=== PATIENT | female | born 2000 | race Caucasian/White ===

== ENCOUNTER 2024-07-11 10:24 | Emergency (ER) | payer MEDICAID, SELFPAY ==
--- NOTE | ~2024-07-11 | US_ITS ---
EXAMINATION: US PELVIS CLINICAL INFORMATION: Vaginal bleeding x2 weeks. LMP x2 weeks. COMPARISON: None available. TECHNIQUE: Ultrasound of the pelvis is performed using both transabdominal and transvaginal transducers along with Doppler. Transvaginal imaging is performed due to inadequate visualization transabdominally. FINDINGS: Uterus: The uterus is anteverted and measures 6.7 x 3.6 x 4.2 cm. The double wall endometrial thickness is 0.5 mm. The uterus is smooth in contour and has normal myometrial echogenicity. No visible fibroid. Adnexa: Both ovaries are visualized. There is normal color flow to the adnexa. There is no ovarian torsion. There is no pelvic ascites or fluid collection. Right ovary measures 3.3 x 2.3 x 2.3 cm. This corresponds to a volume of 9.1 mL. There is a 1 cm follicle within the right ovary. Left ovary measures 3.4 x 1.7 x 1.2 cm. This corresponds to a volume of 3.6 mm. US/US pelvic and transvaginal IMPRESSION: The uterus is normal in appearance. Both ovaries are normal in appearance. The right ovary has a dominant follicle measuring 1 cm. Electronically signed by: Fabian Horowitz DO 07/11/2024 02:15 PM EST
[2024-07-11 10:31] VITALS: BP 123/63; PULSE 70; RESP 19; TEMP 36.6; O2SAT 98; BMI 31.0
--- NOTE | 2024-07-11 10:55 | ED_ITS ---
HPI - Female Genitourinary General Chief complaint: Vaginal Bleeding Stated complaint: abnormal vaginal bleeding Time Seen by Provider: 07/11/24 10:51 Source: patient and certified court interpreter (american) Mode of arrival: ambulatory Limitations: language barrier (american speaking) History of Present Illness ED Provider: VALENTINA DUCKWORTH PA-C HPI Narrative: 24 year old female with no significant pmhx presents to the ED today for evaluation of vaginal bleeding x 10 days. Patient states that she will have around 5 days of bleeding with cessation of bleeding for a few days prior to it starting up again. This has been occurring over the last three months. Admits to passing clots. Reports going through 2-3 pads/ days. Endorses associated lower abdominal cramping. States it feels as though she is on her period. She is currently sexually active with her one male partner. Denies concern for STDs. She has a nexplanon inserted in her left upper arm for protection against . No OCP use. Denies fever, chills, fatigue, flank pain, N/V, dysuria, hematuria, constipation, diarrhea, vaginal discharge. Patient reports moving here from [facility] 3 months ago. She does not currently have a PCP of ekg manager. educational sign language interpreter was utilized throughout visit to communicate with patient. Related Data Allergies Allergy/AdvReac Type Severity Reaction Status Date / Time No Known Allergies Allergy Verified 07/11/24 10:34 Review of Systems 2 Review of Systems: Constitutional: No fever, chills, fatigue, night sweats, weight changes ENT/Mouth: No ear pain, hearing loss, nasal congestion, sinus pain, rhinorrhea, sore throat Eyes: No eye pain, swelling, redness, vision changes, discharge Cardio: No chest pain, palpitations, BECKWITH, orthopnea, peripheral edema Pulm: No SOB, cough, sputum, wheezing, dyspnea, hemoptysis GI: No nausea, vomiting, hematemesis, diarrhea, constipation, hematochezia, melena, +abdominal pain : No dysuria, frequency, urgency, hesitancy, hematuria, flank pain, urinary flow changes, urinary incontinence or retention, +vaginal bleeding MSK: No back pain, neck pain, joint pain, myalgias Skin: No lesions, rashes Neuro: No weakness, numbness, paresthesias, LOC, dizziness, headache Psych: No anxiety/panic, depression, SI/HI, AH/VH All other systems reviewed and are negative. FOR[facility]LY [facility], [facility] Past Medical History Attestation statement: The following information was validated with the patient. Source: old records reviewed and nursing notes reviewed Social History Social History Advance Directives: No Advance Directives Information Provided: No Do you have a plan to hurt others: No Plan Physical Exam 2 Vital Signs: Vital Signs: Last Vital Signs Temp 98.2 F 07/11/24 15:39 Pulse 58 07/11/24 15:39 Resp 16 07/11/24 15:39 BP 117/69 07/11/24 15:39 Pulse Ox 100 07/11/24 15:39 O2 Del Method Room Air 07/11/24 15:39 BMI result Body Mass Index 31.0 vital signs stable, afebrile General: Well appearing, in no acute distress. Skin: Warm, dry, intact. No rashes or lesions. No pallor. Head: Normocephalic, atraumatic. Cardiac: Chest wall symmetric. RRR Lungs: Normal respiratory effort without accessory muscle use Abdomen: soft, ND, NT to palpation, no rebound tenderness or guarding. Normoactive bowel sounds x4. No CVAT bilaterally. 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 External genitalia is normal in appearance without lesions, swelling, masses or tenderness. Vaginal canal is pink and moist without lesions. there is a small amount of dark red blood within the vaginal canal, no noted clots. Cervix is non-tender without lesions or erosions. No noted discharge. Uterus is anteflexed, non-tender and normal in size. Ovaries are non-tender without palpable masses or enlargement. No cervical motion tenderness on bimanual exam. Back: No midline spinous or paraspinal tenderness. No step off deformity. Ext: Upper and lower extremities atraumatic, without tenderness, deformity, swelling or erythema. Neuro: AOx3. Normal speech. Ambulating with steady gait. Course Course Course Narrative: 1430 -- CBC without leukocytosis or left shift. No anemia. H&H stable. Chemistry without acute electrolyte abnormality requiring intervention. No TIMBO. Normal liver function. Beta HCG quant undetectable. Urine showing large amount of blood, trace leukocyte esterase, 3-5 RBCs, negative nitrites, 11-20 squamous epithelial cells, 2+ urine bacteria. This is likely contamination. Will await urine culture results for treatment of UTI. Urine negative. Pelvic/transvaginal ultrasound showing normal uterus, both ovaries are normal in appearance, right ovary with dominant follicle measuring 1 cm. 1530 -- Repeat CBC unchanged. H&H stable. no anemia. Swabs for BV/ CT/NG / trich sent to lab. pateint declining treatment at this time. informed her that we will contact her with any positive results that warrant treatment. advised patient to follow up with PCP / OBGYN out patient for further investigations. referral provided. Patient has remained stable throughout ED visit today. Discussed worrisome signs and symptoms and when to return to the ED. All questions answered at this time. Patient is agreeable with disposition and stable for discharge. Medications Administered Discontinued Medications Generic Name Dose Route Start Last Admin Trade Name Freq PRN Reason Stop Dose Admin Ibuprofen 600 mg 07/11/24 11:31 07/11/24 12:11 Ibuprofen 600 Mg Tablet PO 07/11/24 11:32 600 mg ONCE ONE Administration Medical Decision Making Medical Decision Making MDM Narrative: 24 year old female with no significant pmhx presents to the ED today for evaluation of vaginal bleeding x 10 days. Vital signs are stable. She is non toxic appearing and in NAD. On exam, abdomen is soft, nondistended, nontender to palpation, no rebound tenderness or guarding. Normoactive bowel sounds x4. No CVAT bilaterally. On pelvic exam, External genitalia is normal in appearance without lesions, swelling, masses or tenderness. Vaginal canal is pink and moist without lesions. there is a small amount of dark red blood within the vaginal canal, no noted clots. Cervix is non-tender without lesions or erosions. No noted discharge. Uterus is anteflexed, non-tender and normal in size. Ovaries are non-tender without palpable masses or enlargement. No cervical motion tenderness on bimanual exam. Based on history, physical exam, and ED workup patient?s presentation is not consistent with ectopic , molar , life-threatening coagulopathy, trauma, serious bacterial infection, central process or other emergency. Most likely, patient?s bleeding is secondary to fibroids, menses, or other non- emergent cause of abnormal uterine bleeding. Will obtain basic labs to assess for anemia, infection. ED workup: CBC, CMP, UA, bHCG, pelvic ultrasound, pelvic exam with vaginal swabs Differential Diagnosis Differential Diagnoses: The differential diagnosis associated with the presentation includes As above Admission/Observation Not indicated. Lab Data MDM Lab Attestation statement: I reviewed the patient's lab results. as above. 07/11/24 15:19 07/11/24 11:10 Labs: Lab Results 07/11/24 07/11/24 07/11/24 Range/Units 11:10 11:20 15:19 WBC 6.6 8.3 (4.8-10.8) X10*3/uL RBC 4.68 4.69 (4.20-5.50) X10*6/uL Hgb 14.2 14.2 (12.0-16.0) g/dl Hct 41.2 41.4 (37.0-47.0) % MCV 88.0 88.3 (80.0-98.0) fL MCH 30.3 30.3 (27.0-33.0) pg MCHC 34.5 34.3 (31.0-35.0) g/dl RDW 13.1 13.0 (11.0-16.0) % Plt Count 272 267 (160-400) X10*3/uL MPV 10.4 10.2 (9.4-12.3) fL Immature Gran % (Auto) 0.3 0.2 (0.0-0.4) % Neut % (Auto) 55.1 58.9 (45-73) % Lymph % (Auto) 35.1 31.9 (20-40) % Summers % (Auto) 7.7 7.7 (2-11) % Eos % (Auto) 1.5 1.1 (0-4) % Baso % (Auto) 0.3 0.2 (0-2) % Lymph # (Auto) 2.3 2.7 (1.2-4.9) X10*3/uL Summers # (Auto) 0.5 0.6 (0.1-1.2) X10*3/uL Eos # (Auto) 0.1 0.1 (0.0-0.4) X10*3/uL Baso # (Auto) 0.0 0.0 (0.0-0.2) X10*3/uL Abs Immat Gran (auto) 0.02 0.02 (0.00-0.03) X10*3/uL Absolute Neuts (auto) 3.6 4.9 (2.0-8.3) x10*3/uL Absolute Nucleated RBC 0.000 0.000 (0.0-0.012) X10*3/uL Nucleated RBC % (auto) 0.0 0.0 (0.0-0.2) /100WBC Sodium 137 (135-145) mmol/L Potassium 3.7 (3.3-5.1) mmol/L Chloride 107 (96-108) mmol/L Carbon Dioxide 23 (22-29) mmol/L Anion Gap 11 L (12-20) BUN 12 (9-16) mg/dL Creatinine 0.75 (0.5-1.4) mg/dL Estim Creat Clear Calc 91.3 Estimated GFR > 60 Random Glucose 100 (60-115) mg/dL Calcium 9.7 (8.4-10.2) mg/dL Magnesium 2.1 (1.6-2.6) mg/dL Total Bilirubin 0.3 (0.0-1.0) mg/dL AST 23 (5-31) U/L ALT 20 (0-31) U/L Alkaline Phosphatase 101 (39-117) U/L Total Protein 7.7 (6.5-8.0) g/dL Albumin 4.6 (3.5-5.0) g/dL Beta HCG, Quant < 2 mIU/mL Urine Color Yellow Urine Appearance Cloudy Urine pH 5.0 (5.0-9.0) Ur Specific Glasco 1.025 (1.005-1.025) Urine Protein Negative (Neg-Trace) mg/dL Urine Glucose (UA) Negative (Negative) mg/dL Urine Ketones Negative (Negative) mg/dL Urine Blood Large (3+) H (Negative) Urine Nitrite Negative (Negative) Ur Leukocyte Esterase Trace H (Negative) Urine RBC 3-5 H (0-2) /HPF Urine WBC 0-5 (0-5) /HPF Ur Squamous Epith Cells 11-20 (0-2) /HPF Urine Bacteria 2+ (None Seen) Hyaline Casts 0-2 (0-2) /LPF Urine Test NEGATIVE (NEGATIVE) Chlam trachomat DNA PCR (Not Detect.) N.gonorrhoeae DNA (PCR) (Not Detect.) T. vaginalis (PCR) (Not Detect) Bact Vaginosis (PCR) (Negative) C. krusei/glabrata (PCR) (Not Detect) Shaneka group (PCR) (Not Detect) 07/11/24 Range/Units 15:20 WBC (4.8-10.8) X10*3/uL RBC (4.20-5.50) X10*6/uL Hgb (12.0-16.0) g/dl Hct (37.0-47.0) % MCV (80.0-98.0) fL MCH (27.0-33.0) pg MCHC (31.0-35.0) g/dl RDW (11.0-16.0) % Plt Count (160-400) X10*3/uL MPV (9.4-12.3) fL Immature Gran % (Auto) (0.0-0.4) % Neut % (Auto) (45-73) % Lymph % (Auto) (20-40) % Summers % (Auto) (2-11) % Eos % (Auto) (0-4) % Baso % (Auto) (0-2) % Lymph # (Auto) (1.2-4.9) X10*3/uL Summers # (Auto) (0.1-1.2) X10*3/uL Eos # (Auto) (0.0-0.4) X10*3/uL Baso # (Auto) (0.0-0.2) X10*3/uL Abs Immat Gran (auto) (0.00-0.03) X10*3/uL Absolute Neuts (auto) (2.0-8.3) x10*3/uL Absolute Nucleated RBC (0.0-0.012) X10*3/uL Nucleated RBC % (auto) (0.0-0.2) /100WBC Sodium (135-145) mmol/L Potassium (3.3-5.1) mmol/L Chloride (96-108) mmol/L Carbon Dioxide (22-29) mmol/L Anion Gap (12-20) BUN (9-16) mg/dL Creatinine (0.5-1.4) mg/dL Estim Creat Clear Calc Estimated GFR Random Glucose (60-115) mg/dL Calcium (8.4-10.2) mg/dL Magnesium (1.6-2.6) mg/dL Total Bilirubin (0.0-1.0) mg/dL AST (5-31) U/L ALT (0-31) U/L Alkaline Phosphatase (39-117) U/L Total Protein (6.5-8.0) g/dL Albumin (3.5-5.0) g/dL Beta HCG, Quant mIU/mL Urine Color Urine Appearance Urine pH (5.0-9.0) Ur Specific Glasco (1.005-1.025) Urine Protein (Neg-Trace) mg/dL Urine Glucose (UA) (Negative) mg/dL Urine Ketones (Negative) mg/dL Urine Blood (Negative) Urine Nitrite (Negative) Ur Leukocyte Esterase (Negative) Urine RBC (0-2) /HPF Urine WBC (0-5) /HPF Ur Squamous Epith Cells (0-2) /HPF Urine Bacteria (None Seen) Hyaline Casts (0-2) /LPF Urine Test (NEGATIVE) Chlam trachomat DNA PCR DETECTED A (Not Detect.) N.gonorrhoeae DNA (PCR) NOT DETECTED (Not Detect.) T. vaginalis (PCR) NOT DETECTED (Not Detect) Bact Vaginosis (PCR) POSITIVE A (Negative) C. krusei/glabrata (PCR) NOT DETECTED (Not Detect) Shaneka group (PCR) NOT DETECTED (Not Detect) Independent Interpretation I performed an independent interpretation of an: Ultrasound Interpretation: Pelvic ultrasound without evidence of ovarian cysts or fibroids Radiology Impression Discussion of test interpretation with radiology: I have reviewed the radiologist's reading. Radiologist Impression: EXAMINATION: US PELVIS CLINICAL INFORMATION: Vaginal bleeding x2 weeks. LMP x2 weeks. COMPARISON: None available. TECHNIQUE: Ultrasound of the pelvis is performed using both transabdominal and transvaginal transducers along with Doppler. Transvaginal imaging is performed due to inadequate visualization transabdominally. FINDINGS: Uterus: The uterus is anteverted and measures 6.7 x 3.6 x 4.2 cm. The double wall endometrial thickness is 0.5 mm. The uterus is smooth in contour and has normal myometrial echogenicity. No visible fibroid. Adnexa: Both ovaries are visualized. There is normal color flow to the adnexa. There is no ovarian torsion. There is no pelvic ascites or fluid collection. Right ovary measures 3.3 x 2.3 x 2.3 cm. This corresponds to a volume of 9.1 mL. There is a 1 cm follicle within the right ovary. Left ovary measures 3.4 x 1.7 x 1.2 cm. This corresponds to a volume of 3.6 mm. US/US pelvic and transvaginal IMPRESSION: The uterus is normal in appearance. Both ovaries are normal in appearance. The right ovary has a dominant follicle measuring 1 cm. Electronically signed by: Fabian Horowitz DO 07/11/2024 02:15 PM [facility] Prescription Management I considered prescription management with: Pain Medication ( Tylenol, ibuprofen) Social Determinants Patient?s care significantly limited by Social Determinants of Health including: Other Social Determinant of Health Critical Care Time Critical Care Time Critical Care Time: No Discharge Plan Discharge Clinical Impression: Abnormal uterine bleeding Patient Disposition: Home, Self-Care Instructions: Dysfunctional Uterine Bleeding (ED), Menorrhagia (ED) Additional Instructions: Your blood work today is reassuring. You are not anemic. There is no infection. Your urine is negative for infection and . The ultrasound of your uterus/ovaries is normal. There is no evidence of ovarian cysts. No evidence of . No evidence of uterine fibroids. Your pelvic exam showed bleeding within your vaginal canal. Otherwise normal. Vaginal swabs have been sent to the lab to check for STDs. You will be contacted with any positive results in a few days. At this time, your workup is essentially unremarkable. You may take Tylenol and ibuprofen at home for pain /discomfort. Apply heating pad to your abdomen for comfort. As discussed, you need to follow-up with either primary care provider or ekg manager outpatient. I have provided you with a referral to both of these. Please call them tomorrow morning to establish care. They will not call you. Return to the ED if you are bleeding through more than 2 pads every hour, you develop a fever or if your pain gets worse. In the case of an emergency call 911. Referrals: [facility] Family Medicine [Provider Group] [facility] Primary Care, Angel [Provider Group] [facility] Primary Care,Kya [Provider Group] Petr Garcia MD [Physician] - 2 days ( Abnormal uterine bleeding) Interventions: ED Discharge Assessment Last Done: 07/11/24 15:39 Discharge Date/Time: 07/11/24 15:39 Print Language: [place]
[2024-07-11 11:14] LABS: MANUAL DIFF FLAG NO
[2024-07-11 11:19] LABS: Basophils Percent Auto 0.3 % (0-2); Eosinophils Absolute Auto 0.1 X10*3/uL (0.0-0.4); Eosinophils Percent Auto 1.5 % (0-4); Hematocrit 41.2 % (37.0-47.0); Hemoglobin 14.2 g/dl (12.0-16.0); Imm Gran Abs Auto 0.02 X10*3/uL (0.00-0.03); Imm Gran Pct Auto 0.3 % (0.0-0.4); Lymphocytes Absolute Auto 2.3 X10*3/uL (1.2-4.9); Lymphocytes Percent Auto 35.1 % (20-40); Mean Corpuscular HGB Conc 34.5 g/dl (31.0-35.0); Mean Corpuscular Hemoglobin 30.3 pg (27.0-33.0); Mean Platelet Volume 10.4 fL (9.4-12.3); Monocytes Absolute Auto 0.5 X10*3/uL (0.1-1.2); Monocytes Percent Auto 7.7 % (2-11); Neutrophils Absolute Auto 3.6 x10*3/uL (2.0-8.3); Neutrophils Percent Auto 55.1 % (45-73); Platelet Count 272 X10*3/uL (160-400); Red Blood Count 4.68 X10*6/uL (4.20-5.50); Red Cell Distribution Width 13.1 % (11.0-16.0); White Blood Count 6.6 X10*3/uL (4.8-10.8)
[2024-07-11 11:28] LABS: Appearance Urine Cloudy; Color Urine Yellow; Glucose Urine UA Negative (Negative); Leukocyte Esterase Urine Trace (Negative); Nitrite Urine Negative (Negative); Specific Gravity - Urine 1.025 (1.005-1.025); UMIC TRIGGER UACC YES; UPreg QC Valid YES; Urine Blood Large (3+) (Negative); Urine Ketones Negative (Negative); Urine Pregnancy NEGATIVE (NEGATIVE); Urine Protein Negative (Neg-Trace)
[2024-07-11 11:34] LABS: Alanine Aminotransferase 20 U/L (0-31); Albumin Level 4.6 g/dL (3.5-5.0); Alkaline Phosphatase 101 U/L (39-117); Anion Gap 11 (12-20); Aspartate Amino Transferase 23 U/L (5-31); Bilirubin Total 0.3 mg/dL (0.0-1.0); Blood Urea Nitrogen 12 mg/dL (9-16); Calcium 9.7 mg/dL (8.4-10.2); Carbon Dioxide 23 mmol/L (22-29); Chloride 107 mmol/L (96-108); Creatinine Clr Calc Pharmacy 91.3; Estimated Glomerular Filt Rate > 60; Glucose Random 100 mg/dL (60-115); Magnesium 2.1 mg/dL (1.6-2.6); Potassium 3.7 mmol/L (3.3-5.1); Sodium 137 mmol/L (135-145); Total Protein 7.7 g/dL (6.5-8.0)
[2024-07-11 11:36] LABS: HCG Quantitative < 2 mIU/mL
[2024-07-11 11:43] LABS: Bacteria Urine 2+ (None Seen); Hyaline Casts Urine 0-2 /LPF (0-2); WBC Urine 0-5 /HPF (0-5)
--- NOTE | 2024-07-11 11:45 | PC.NURSE ---
resting quietly in room, ultrasound at bedside.
[2024-07-11 12:10] VITALS: BP 104/51; PULSE 69; RESP 14; TEMP 37.2; O2SAT 100
[2024-07-11] MEDS: Ibuprofen 600 MG TABLET PO (12:11)
[2024-07-11 15:23] VITALS: BP 117/69; PULSE 58; RESP 16; TEMP 36.8; O2SAT 100
[2024-07-11 15:25] LABS: MANUAL DIFF FLAG NO
[2024-07-11 15:27] LABS: Basophils Percent Auto 0.2 % (0-2); Eosinophils Absolute Auto 0.1 X10*3/uL (0.0-0.4); Eosinophils Percent Auto 1.1 % (0-4); Hematocrit 41.4 % (37.0-47.0); Hemoglobin 14.2 g/dl (12.0-16.0); Imm Gran Abs Auto 0.02 X10*3/uL (0.00-0.03); Imm Gran Pct Auto 0.2 % (0.0-0.4); Lymphocytes Absolute Auto 2.7 X10*3/uL (1.2-4.9); Lymphocytes Percent Auto 31.9 % (20-40); Mean Corpuscular HGB Conc 34.3 g/dl (31.0-35.0); Mean Corpuscular Hemoglobin 30.3 pg (27.0-33.0); Mean Corpuscular Volume 88.3 fL (80.0-98.0); Mean Platelet Volume 10.2 fL (9.4-12.3); Monocytes Absolute Auto 0.6 X10*3/uL (0.1-1.2); Monocytes Percent Auto 7.7 % (2-11); Neutrophils Absolute Auto 4.9 x10*3/uL (2.0-8.3); Neutrophils Percent Auto 58.9 % (45-73); Platelet Count 267 X10*3/uL (160-400); Red Blood Count 4.69 X10*6/uL (4.20-5.50); White Blood Count 8.3 X10*3/uL (4.8-10.8)
[2024-07-11 15:39] VITALS: BP 117/69; PULSE 58; RESP 16; TEMP 36.8; O2SAT 100
[2024-07-12 01:08] LABS: CT PCR DETECTED (Not Detect.); NG PCR NOT DETECTED (Not Detect.)
[2024-07-12 10:52] LABS: Bacterial Vaginosis PCR POSITIVE (Negative); Candida Group PCR NOT DETECTED (Not Detect); Candida glab krusei PCR NOT DETECTED (Not Detect); Trichomonas vaginalis PCR NOT DETECTED (Not Detect)
== END 2024-07-11 15:39 | disposition home or self-care (01) ==
PROVIDERS: Physician Assistant Medical; Emergency Provider Emergency Medicine
DX: N93.8 Other specified abnormal uterine and vaginal bleeding (principal); N76.0 Acute vaginitis; A74.9 Chlamydial infection, unspecified; Z20.2 Contact with and (suspected) exposure to infections with a predominantly sexual mode of transmission; Z79.899 Other long term (current) drug therapy
CPT/HCPCS: 0352U; 36415; 76830; 76856; 80053; 81001; 81025; 83735; 84702; 85025; 87491; 87591; 99284